=== PATIENT | male | born 1970 | race Caucasian/White ===

== ENCOUNTER 2016-09-17 10:38 | Day surgery (SDC) | payer MEDICARE ==
--- NOTE | ~2016-09-17 | OP ---
Record Of Operation [facility] [address] [place]. [address] NAME: AICHA TIRADO : 72 STATUS : [facility]#: [id number] AGE: 46 ADM/REG DATE : 09/17/16 MR#: [id number] REPORT SERV DATE: 09/19/16 DICTATED BY: ELIS JOHNSON II DATE: 09/19/16 REPORT STATUS : Draft TRANSCRIBED BY: MODL DATE: 09/19/16 DATE OF PROCEDURE: 09/17/2016 PREOPERATIVE DIAGNOSES: 1. Metastatic lung cancer. 2. T3 infiltration with pathologic fracture. POSTOPERATIVE DIAGNOSES: 1. Metastatic lung cancer. 2. T3 infiltration with pathologic fracture. PROCEDURE: 1. T3 kyphoplasty. 2. Use of stereotactic guidance. SURGEON: Elis Johnson M.D. FLUIDS: Approximately the 500 mL LR. ESTIMATED BLOOD LOSS: 2 mL. ANESTHESIA: General anesthesia. COMPLICATIONS: None. PREOPERATIVE HISTORY: A friendly 46-year-old gentleman, whom I spoke with Dr. Og Gillis regarding. Dr. Gillis reports that the patient is still ongoing with chemotherapy, but has already completed radiation therapy to the T3 region. He does have a spinal column stimulator from pain management, which unfortunately has precluded an MRI. The CT scan does show a pathologic infiltration of T3. We discussed the pros and cons of continuing nonoperative care versus surgery. We discussed the procedure (kyphoplasty) may fail to give significant pain relief. We also discussed that if this recurred that he would need a posterior stabilization. He was not interested in fusion at this point, and again I discussed with him and his that it was not unreasonable to try the kyphoplasty, but I was not very confident it was going to give him significant relief. DESCRIPTION OF PROCEDURE: After informed consent was obtained, the patient was brought to the operating room at his request, and general anesthesia achieved. He was placed in the prone position and the back was prepped and draped in a sterile fashion. The incision was then made approximately T8 and the spinous process clamp applied to the T8 spinous process. The intraoperative CT scan was then performed and this allowed excellent visualization at T3. A small incision was then made and the trocar advanced into T3. The balloon was then insufflated and removed. We then placed toothpaste consistency bone glue to the vertebral body. This did fill the T3 void fairly well. At this point, the trocar was removed and the patient was extubated and transferred to PACU in stable condition. Record Of Operation [facility] [place]. [address] NAME: AICHA TIRADO : 72 STATUS : [facility] PAT#: [id number] AGE: 46 ADM/REG DATE : 09/17/16 MR#: [id number] REPORT SERV DATE: 09/19/16 DICTATED BY: ELIS JOHNSON II DATE: 09/19/16 REPORT STATUS : Draft TRANSCRIBED BY: DANIS DATE: 09/19/16 Again the plan will be a posterior fusion and instrumentation as needed for pain and/or instability. BANDAR/DANIS Elis Johnson II, M.D. / [id number] CC: Yulissa Galvez II, M.D.
[~2016-09-17 10:38] MED LIST: CYMBALTA30 PO; DEX4 PO; MAGIC MOUTHWASH; MSCONT60 PO; PR25 PO; ROXICODONE15 MG PO
[2016-09-17 11:37] LABS: HEMATOCRIT 37.8 % (40.0-51.0); HEMOGLOBIN 12.7 g/dL (13.6-17.8)
[2016-12-29] MEDS ORDERED: MAXALT10 MG PO (10:34)
== END 2016-09-17 18:13 | disposition home or self-care (01) ==
LOC: SDC 10:38
PROVIDERS: Orthopaedic Surgery
PROC: 0PU43JZ Supplement Thoracic Vertebra with Synthetic Substitute, Percutaneous Approach (ICD-10-PCS; 2016-09-17)
PROC: 0PS43ZZ Reposition Thoracic Vertebra, Percutaneous Approach (ICD-10-PCS; principal; 2016-09-17 12:15)
DX: M84.58XA Pathological fracture in neoplastic disease, other specified site, initial encounter for fracture (principal); C34.91 Malignant neoplasm of unspecified part of right bronchus or lung; F17.210 Nicotine dependence, cigarettes, uncomplicated; G89.29 Other chronic pain; Z79.891 Long term (current) use of opiate analgesic; Z79.899 Other long term (current) drug therapy; Z98.890 Other specified postprocedural states
CPT/HCPCS: 85014; 85018; A9270-GY; C1776; J0690; J2250; J2270; J2405; J2710; J3010; Q9967

== ENCOUNTER 2016-12-31 06:11 | Day surgery (SDC) | payer MEDICARE ==
[2016-12-28 19:53] LABS: BASOPHILS 0.3 %; BASOPHILS ABSOLUTE 0.01 10/3/uL (0.0-0.16); EOSINOPHILS 4.6 %; EOSINOPHILS ABSOLUTE 0.15 10/3/uL (0.0-0.53); HEMOGLOBIN 12.2 g/dL (13.6-17.8); IMMATURE GRANULOCYTES 0.3 %; IMMATURE GRANULOCYTES ABSOLUTE 0.01 10/3/uL (0.0-0.11); LYMPHOCYTES 45.3 %; LYMPHOCYTES ABSOLUTE 1.48 10/3/uL (0.67-4.30); MEAN CORPUSCULAR VOLUME 91.1 fL (80-100); MEAN PLATELET VOLUME 9.9 fL (9.2-13.0); MONOCYTES 15.9 %; MONOCYTES ABSOLUTE 0.52 10/3/uL (0.21-1.20); NEUTROPHILS 33.6 %; PLATELET COUNT 283 10/3/uL (150-400); RBC DISTRIBUTION WIDTH 13.7 % (12.0-16.0); RED CELL COUNT 4.06 10/6/uL (4.7-6.1); WHITE BLOOD CELLS 3.3 10/3/uL (4.5-10.5)
[2016-12-28 19:56] LABS: MANUAL DIFF NO %
[2016-12-28 19:59] LABS: BUN (BLOOD UREA NITROGEN) 7 MG/DL (6-23); CALCIUM, SERUM 9.5 MG/DL (8.5-10.4); CHLORIDE, SERUM 102 MMOL/L (96-112); CO2 (CARBON DIOXIDE) 30 MMOL/L (24-34); CREATININE 0.77 MG/DL (0.70-1.30); GFR AFRICAN AMERICAN 127 ML/MIN (>=60); GFR NON AFRICAN AMERICAN 110 ML/MIN (>=60); GLUCOSE, SERUM 120 MG/DL (60-99); POTASSIUM, SERUM 4.3 MMOL/L (3.5-5.3); SODIUM, SERUM 138 MMOL/L (135-148)
[~2016-12-31] VITALS: Ht 188 cm; Wt 69.9 kg
--- NOTE | ~2016-12-31 | OP ---
Record Of Operation [facility] [address] [place]. [address] NAME: AICHA TIRADO : 72 STATUS : [facility]#: [id number] AGE: 46 ADM/REG DATE : 12/31/16 MR#: [id number] REPORT SERV DATE: 12/31/16 DICTATED BY: CARLIN PEREZ DATE: 12/31/16 REPORT STATUS : Draft TRANSCRIBED BY: DANIS DATE: 12/31/16 DATE OF PROCEDURE: PREOPERATIVE DIAGNOSES: 1. Lung cancer with need for central IV access. 2. Chronic obstructive pulmonary disease. 3. Chronic pain. 4. Controlled gastroesophageal reflux disease. POSTOPERATIVE DIAGNOSES: 1. Lung cancer with need for central IV access. 2. Chronic obstructive pulmonary disease. 3. Chronic pain. 4. Controlled gastroesophageal reflux disease. PROCEDURE: Left subclavian vein Port-A-Cath placement with intraoperative fluoroscopy. ANESTHESIA: General. ROAD [employer] HOT MIX: Ivet. COMPLICATIONS: None. DRAINS: None. ESTIMATED BLOOD LOSS: 5 mL. OPERATIVE TECHNIQUE: The patient was brought to the operating room and placed on the table in supine position. He had preoperative IV antibiotics. He had sequential hose in place. He voided prior to the procedure. He underwent general endotracheal anesthesia with an LMA. A time-out was completed and he was prepped and draped in sterile fashion with the shoulder roll parallel with the spine. The left subclavian vein was then accessed and a wire was passed via Seldinger technique. It was confirmed in the central venous system with fluoroscopy. A transverse incision was made at the wire insertion site and it was carried to the anterior fascia. The pocket was then created at the level of the fascia inferiorly. The preassembled and flush catheter was then secured to the chest wall with interrupted three-point Ethibond fixation. It was cut to length with the aid of fluoroscopy. The dilator and sheath were placed over the wire and the catheter was fully advanced through the sheath. The sheath was then peeled away. Fluoroscopy revealed the catheter to be in good position. It was noted to aspirate easily and was flushed with heparinized solution. At this point, the subcutaneous tissues were irrigated and hemostasis was noted. The subcutaneous tissues were then reapproximated using a running 3-0 Vicryl suture followed by running Monocryl subcuticular stitch. Dermabond was applied. He was extubated and taken to the recovery room in stable condition for postoperative chest x-ray. He tolerated the procedure well. All sponge and needle counts reported correct. Record Of Operation [facility] [address] [place]. [address] NAME: AICHA TIRADO : 72 STATUS : [facility]#: [id number] AGE: 46 ADM/REG DATE : 12/31/16 MR#: [id number] REPORT SERV DATE: 12/31/16 DICTATED BY: CARLIN PEREZ DATE: 12/31/16 REPORT STATUS : Draft TRANSCRIBED BY: DANIS DATE: 12/31/16 /DANIS Carlin Perez M.D. / [id number] CC: Yulissa Longoria M.D. Davey B. Daniel, M.D.
[~2016-12-31 06:11] MED LIST changes: +MAXALT10 MG PO
== END 2016-12-31 10:24 | disposition home or self-care (01) ==
LOC: SDC 06:11
PROVIDERS: Surgery
PROC: 05H633Z Insertion of Infusion Device into Left Subclavian Vein, Percutaneous Approach (ICD-10-PCS; principal; 2016-12-31 07:45)
DX: C34.90 Malignant neoplasm of unspecified part of unspecified bronchus or lung (principal); J44.9 Chronic obstructive pulmonary disease, unspecified; K21.9 Gastro-esophageal reflux disease without esophagitis; G89.29 Other chronic pain; G35 Multiple sclerosis; F17.210 Nicotine dependence, cigarettes, uncomplicated; Z88.8 Allergy status to other drugs, medicaments and biological substances; Z98.890 Other specified postprocedural states
CPT/HCPCS: 71010; 76000; 77001; 80048; 85025; 93005; C1751; J0690; J1885; J2250; J2370; J2405; J3010; Q9967